=== PATIENT | female | born 1950 | race Two or more races ===

== ENCOUNTER → 2023-06-21 | Outpatient (CLI) | payer OTHER, MEDICAID ==
[~2023-06-21] MED LIST: iohexol 350MG/ML 100ml bottle IV ONE
== END | disposition home or self-care (01) ==
LOC: RAD 09:55
PROVIDERS: ATTEND Internal Medicine Cardiovascular Disease
DX: I26.99 Other pulmonary embolism without acute cor pulmonale (principal); R79.1 Abnormal coagulation profile; Z90.49 Acquired absence of other specified parts of digestive tract
CPT/HCPCS: 71275; J3490; Q9967